=== PATIENT | male | born 1935 | race Caucasian/White ===

== ENCOUNTER 2022-09-11 08:20 | Observation (INO) ==
--- NOTE | 2022-08-05 09:58 | PAT Medication Instructions ---
Medication Instructions Date of Service August 05, 2022 Home Medications Medication Instructions Recorded atorvastatin 10 mg tablet See Rx Instructions .Route 06/05/22 .COMPLEX #90 tabs atorvastatin 10 mg tablet See Rx Instructions .Route .COMPLEX cyanocobalamin (vitamin B-12) 100 mcg tablet 100 mcg PO QAM garlic 1,000 mg PO DAILY multivitamin 0.5 tab PO BID omega-3 fatty acids 1,000 mg PO BID pyridoxine (vitamin B6) 100 mg tablet (Vitamin B-6) 100 mg PO DAILY turmeric 400 mg capsule 400 mg PO DAILY vitamins A,C,W-seya-otyccb 2,148 mcg-113 mg-45 mg-17.4 mg tablet (PreserVision AREDS) 1 tab PO BID STOP taking 2 weeks before surgery (or as soon as possible if surgery is within 2 weeks) garlic 1,000 mg PO DAILY omega-3 fatty acids 1,000 mg PO BID turmeric 400 mg capsule 400 mg PO DAILY vitamins A,C,K-xpek-scazph 2,148 mcg-113 mg-45 mg-17.4 mg tablet (PreserVision AREDS) 1 tab PO BID DO NOT take the morning of surgery cyanocobalamin (vitamin B-12) 100 mcg tablet 100 mcg PO QAM multivitamin 0.5 tab PO BID pyridoxine (vitamin B6) 100 mg tablet (Vitamin B-6) 100 mg PO DAILY Take evening before surgery atorvastatin 10 mg tablet See Rx Instructions .Route .COMPLEX multivitamin 0.5 tab PO BID Other Notes If you have any questions please call us at [phone] or [phone] or [phone] or [phone]
--- NOTE | 2022-08-12 11:27 | Anesthesiology Consultation ---
Date of Service August 12, 2022 Assessment & Plan (1) Encounter for pre-operative examination: - awaiting upcoming PCP appointment. - Outpatient joint assessment: Patient is currently scheduled for inpatient pathway. If re-evaluated pending system levels during current pandemic/surgeon requests outpatient pathway, patient is not acceptable candidate for outpatient joint program from anesthesia standpoint. Chart Review Chart Review: Pending: Refer to Additional Notes / Consult section and Patient seen in Pre Admission Testing Teaching & Discussion Pre-Anesthesia Teaching/Discussion Notes: Instructed NPO after midnight before surgery, except medications with 15 cc of water. Medication instructions provided according to the PAT guidelines. History Surgery Operation Date: 09/11/22 08:10 Proposed Procedures p Right Total Knee Arthroplasty - Estuardo Linder, Height/Weight Height: 5 ft 5 in Weight: 79.379 kg Allergies Allergy/AdvReac Type Severity Reaction Status Date / Time No Known Allergies Allergy Unknown Unverified 07/28/22 13:14 Medications Home Medications Medication Instructions Recorded Confirmed Last Taken atorvastatin 10 mg tablet See Rx Instructions .Route 06/05/22 Unknown .COMPLEX #90 tabs cyanocobalamin (vitamin B-12) 100 100 mcg PO QAM 07/28/22 07/28/22 Unknown mcg tablet garlic 1,000 mg PO DAILY 07/28/22 07/28/22 Unknown multivitamin 0.5 tab PO BID 07/28/22 07/28/22 Unknown omega-3 fatty acids 1,000 mg PO BID 07/28/22 07/28/22 Unknown pyridoxine (vitamin B6) 100 mg 100 mg PO DAILY 07/28/22 07/28/22 Unknown tablet (Vitamin B-6) turmeric 400 mg capsule 400 mg PO DAILY 07/28/22 07/28/22 Unknown vitamins A,C,G-rozr-hvasfp 2,148 1 tab PO BID 07/28/22 07/28/22 Unknown mcg-113 mg-45 mg-17.4 mg tablet (PreserVision AREDS) Past Medical History Medical History (Updated 08/12/22 @ 11:23 by Annette Smith PA-C) Benign neoplasm of tongue History of COVID-19 04/2021>RESOLVED History of skin cancer L shoulder Hypercholesterolemia Macular degeneration Urinary urgency Patient denies h/o stroke, seizures, heart attack, heart failure, DM, HTN, blood clots or blood transfusions. Exercise / Class Metabolic Activity II 4-5 Yardwork/Stairs/Walk up hill (denies chest discomfort or shortness of breath with 1 FOS) Past Family History Family History Father Diabetes Myocardial infarction Mother Myocardial infarction Sister Diabetes Other No family history of adverse response to anesthesia Denies family history of Ovarian cancer Prostate cancer Breast cancer Colorectal cancer Past Surgical History Surgical History H/O colonoscopy with polypectomy History of cataract surgery RT/LEFT History of tonsillectomy and adenoidectomy Hx of lymph node excision Hx of melanoma excision LEFT UPPER ARM Hx of wisdom tooth extraction Past Anesthesia History No Hx of Anesthesia Complications and No Family Hx of Anesthesia Complications History of PONV No Hx of PONV and No Hx of Motion Sickness Social History Smoking Status: Never smoker Do You Dip or Chew Tobacco: No Hx Alcohol Use: No Hx Substance Use: No substance use type: does not use Review of Systems Patient denies chest pain, shortness of breath, dyspnea on exertion, snoring, witnessed apneas, reflux, fever, chills, cough, wheezing, or palpitations. Physical Exam Vital Signs Vitals BP 149/78 P 66 TEMP 98.3 SP02 94% on RA RESP 17 Physical Full cervical extension range of motion without pain TMD 3.5 finger breadths Mallampati Score 3 Dentition: chipped right upper back tooth and several crowns; denies loose teeth, implants or bridges Lungs: normal respiratory effort. Clear throughout to auscultation, no adventitious breath sounds Cardiac: regular rate and rhythm, no murmurs noted Carotid arteries: negative bruit bilat Lab Results Anesthesia Preop Results Results Anesthesia Widget: WBC 6.02 K/ul (4.8-10.8) 08/12/22 Hgb 13.4 g/dl (14.0-18.0) L 08/12/22 Hct 38.9 % (42.0-52.0) L 08/12/22 Plt 242 K/uL (130-400) 08/12/22 Na 138 mmol/L (136-145) 08/12/22 K 4.4 mmol/L (3.5-5.1) 08/12/22 Cl 105 mmol/L (98-107) 08/12/22 CO2 26 mmol/L (21-32) 08/12/22 BUN 21 mg/dl (6-23) 08/12/22 Creat 0.84 mg/dl (0.6-1.4) 08/12/22 Glucose Level 87 mg/dl (70-99(Fasting)) 08/12/22 PT 11.4 Seconds (9.0-12.0) 08/12/22 PTT 27.5 Seconds (21.0-31.0) 08/12/22 INR 1.1 (0.9-1.1) 08/12/22 Blood Type O Positive 08/12/22 Antibody Screen NEGATIVE 08/12/22 Testing Electrocardiogram Date: 08/12/22 NSR, rate 65 bpm Left axis deviation RBBB Chest X-Ray Date: 08/12/22 No lines and tubes are seen. Calcified aortic knob is seen. The lungs are clear. No evidence of pleural effusion or pneumothorax. IMPRESSION: No acute chest disease. COVID-19 Risk Screen Screening Information COVID-19 Screen Date: 08/12/22 Exposure 21 Days Family/Household +COVID Last 21 Days: No Exposure 10 Days Any COVID Exposure Last 10 Days: No Symptoms Last 10 Days Experienced COVID Sx Last 10 Days: No + COVID 0-90 Days COVID + in Last 0-90 Days: No
--- NOTE | 2022-09-10 07:43 | History & Physical Report ---
Date of Service September 10, 2022 Assessment & Plan (1) Right knee DJD: We will proceed with a right total knee arthroplasty. Postoperatively he will be started on aspirin for DVT prophylaxis and kept overnight in the hospital for postoperative medical management. History of Present Illness Chief Complaint: Osteoarthritis of the right knee. Primary Care Provider: Warren Bradley III, THU Gray is a pleasant 86-year-old male who has been dealing with chronic worsening osteoarthritis of the right knee. He has failed conservative treatment including injections, anti-inflammatories, and activity modification. After failing extensive conservative treatment, he has elected proceed with a right total knee arthroplasty. Allergies Allergy/AdvReac Type Severity Reaction Status Date / Time No Known Allergies Allergy Unknown Unverified 09/07/22 08:03 Home Medications Medication Instructions Recorded Confirmed Type cyanocobalamin (vitamin B-12) 100 100 mcg PO QAM 07/28/22 09/07/22 History mcg tablet garlic 1,000 mg PO DAILY 07/28/22 09/07/22 History multivitamin 0.5 tab PO BID 07/28/22 09/07/22 History omega-3 fatty acids 1,000 mg PO BID 07/28/22 09/07/22 History pyridoxine (vitamin B6) 100 mg 100 mg PO DAILY 07/28/22 09/07/22 History tablet (Vitamin B-6) turmeric 400 mg capsule 400 mg PO DAILY 07/28/22 09/07/22 History vitamins A,C,C-mbib-rhnwfs 2,148 1 tab PO BID 07/28/22 09/07/22 History mcg-113 mg-45 mg-17.4 mg tablet (PreserVision AREDS) atorvastatin 10 mg tablet See Rx Instructions .Route 09/07/22 09/07/22 Rx .COMPLEX #90 tabs Past Med/Surg History Medical History Benign neoplasm of tongue History of COVID-19 04/2021>RESOLVED History of skin cancer L shoulder Hypercholesterolemia Macular degeneration Urinary urgency Surgical History H/O colonoscopy with polypectomy History of cataract surgery RT/LEFT History of tonsillectomy and adenoidectomy Hx of lymph node excision Hx of melanoma excision LEFT UPPER ARM Hx of wisdom tooth extraction Family History Father Diabetes Myocardial infarction Mother Myocardial infarction Sister Diabetes Other No family history of adverse response to anesthesia Denies family history of Ovarian cancer Prostate cancer Breast cancer Colorectal cancer Social History Smoking Status: Never smoker Second Hand Exposure: Yes ( A CHILD); Do You Dip or Chew Tobacco: No; Hx Alcohol Use: No Hx Substance Use: No Preferred Language: Brazilian Communication Ability: Effective Visual Impairment: No Limitations Hearing Ability: Normal Sales Representative Adding Machines Required: No Beliefs That Will Affect Care: None marital status: Current Living Situation: Spouse current occupational status: retired 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 Physical Exam On physical examination the right knee, he has range of motion of 0 to 130 degrees. There is a slight varus deformity. He has pain mostly over the distal medial femoral condyle and over the medial joint line.. Constitutional WD/WN, vitals as above Eyes PERRL, conjunctivae normal, anicteric sclerae ENMT external ear and nose normal, oropharynx normal Neck trachea midline, no thyromegaly Respiratory normal respiratory effort, lungs clear to auscultation Cardiovascular RRR, no murmur, no edema Gastrointestinal (Abdomen) normal bowel sounds, soft, nontender, no hepatosplenomegaly Skin no rashes, warm and dry Psychiatric A+Ox3, euthymic affect Results & Data Results & Data Laboratory Results . Diagnostic Findings X-rays of the right knee show advanced osteoarthritis with joint space narrowing, osteophyte formation, and lyrt-al-uxkb articulation. PG Care Time/CCT Total # of Minutes Spent Total Time Spent with Patient: Total time spent is greater than 50% in coordination of care (as documented) at patient's floor/unit and/or counseling patient: Coding Level of Care Code None Diagnoses Right knee DJD M17.11 Osteoarthritis type: primary (1) Right knee DJD Osteoarthritis type: primary Qualified Code(s): M17.11 - Unilateral primary osteoarthritis, right knee
[~2022-09-11 08:20] MED LIST: ACETAMINOPHEN 500 MG TAB PO SCH; FAMOTIDINE 20 MG TAB PO SCH; GABAPENTIN 300 MG CAP PO SCH; LR 500ML BOLUS, THEN 15ML/HR IV SCH; ORTHO JOINT MIX INFIL SCH; ROPIVACAINE 0.5% 5 MG/ML 30 ML VIAL ONE; TRANEXAMIC ACID 1,000 MG **IV Intra-op IV SCH; TRANEXAMIC ACID 1,000 MG **IV Pre-op IV SCH; ceFAZolin 2000MG 2,000 MG/15 ML SYR IV SCH; dexAMETHasone 4 MG TAB PO SCH
[2022-09-11] MEDS: LR 60ML/HR IV SCH ×2 (09:05→11:37)
[2022-09-11] MEDS ORDERED: MIDAZOLAM HCL 1 MG/ML 2ML VIAL ONE (10:00)
--- NOTE | 2022-09-11 10:14 | History & Physical Bridge Note ---
Date of Service September 11, 2022 History & Physical Bridge Note I have examined the patient, reviewed the History & Physical and in the interval since the performance of the History & Physical I have noted the following changes of clinical significance: no changes noted
[2022-09-11] MEDS ORDERED: ORTHO JOINT ANESTHETIC ONE (10:45)
[2022-09-11] MEDS ORDERED: KETOROLAC 30 MG/ML VIAL IV PRN (11:04)
[2022-09-11] MEDS ORDERED: ATROPINE SULFATE 0.1 MG/ML 10ML SYR IV PRN (11:04)
[2022-09-11] MEDS ORDERED: ePHEDrine sulfate 50 MG/ML AMP IV PRN (11:04)
[2022-09-11] MEDS ORDERED: HYDROmorphone INJ 1 MG/ML SYRINGE IV PRN (11:04)
[2022-09-11] MEDS ORDERED: ONDANSETRON INJ 2 MG/ML 2 ML VIAL IV PRN ×2 (11:04→14:37)
[2022-09-11] MEDS ORDERED: PROPOFOL IV EMULSION 10 MG/ML 20 ML VIAL IV ONE (11:40)
[2022-09-11] MEDS ORDERED: ONDANSETRON INJ 2 MG/ML 2 ML VIAL ONE (11:40)
[2022-09-11] MEDS ORDERED: LIDOCAINE 2% 2 ML VIAL/AMP(20MG/ML) INFIL ONE (11:40)
--- NOTE | 2022-09-11 12:46 | Operative Report ---
PG Post Operative Report Pre & Post Diagnosis Operation Date: 09/11/22 11:00 Pre-Op Diagnosis: Right Knee Degenerative Joint Disease Post-Op Diagnosis: Right Knee Degenerative Joint Disease I identified the patient and participated in the time-out.: Yes Procedure Operation Date: 09/11/22 11:00 Actual Procedures p Right Total Knee Arthroplasty(Right) - Estuardo Linder DO Surgeon Estuardo Linder DO [employer] Estuardo Jacques PA-C Estimated Blood Loss 30 Findings Consistent with Post-Op Diagnosis Specimens Right femoral and tibial bone Description of Procedure Implants used: I used a [employer]yapa Persona total knee arthroplasty system with a size 6 standard femur, D tibia, 34 oval patella, and a size 16 medial congruent polyethylene bearing. All components were cemented in place with Biomet cement. Gray arrived [facility] for the above procedure. He was seen in the preoperative holding area and the operative extremity was identified and signed. He was given a preoperative antibiotic, TXA, a spinal anesthetic and an adductor nerve block. He was taken back to the operating room and laid on the table in supine position. He was given basic sedation. The operative knee was then prepped and draped in sterile fashion. A timeout was done, and the patient and the operative extremity was properly identified. A midline incision was made directly over the patella. Dissection was taken down to the extensor mechanism. A midvastus arthrotomy was used. The medial retinaculum was released and the fat pad was mostly excised. The knee was flexed and the ACL, PCL, and meniscus were removed. A drill was sent down the center of the femoral canal followed by an intramedullary nick. Off that nick a distal femoral cutting block was placed. 9 mm was resected off the distal femur at 5 of valgus. A posterior referencing AP sizing guide was then placed on the distal femur. The femur measured to be a size 6. 2 drill holes were placed in 3 of external rotation. A 4-in-1 cutting block was then impacted into place. Anterior, posterior, and chamfer cuts were then made. The proximal tibia was then exposed. An external tibial alignment guide was placed. A tibial cut guide was then anchored in place and the proximal tibia was then resected. The posterior aspect of the knee was then o pened up and any additional meniscus fragments and osteophytes were removed. The tibia measured to be a size D. The tibial plate was then placed in the appropriate rotation and the tibia was drilled and punched. Trial components were then placed. I used a size 16 medial congruent polyethylene insert. The knee was brought through a full range of motion and felt to be stable. The peg holes for the femoral component were then drilled. The patella was then everted and 9 mm was resected off the posterior aspect of the patella. The patella measured to be a size 34 oval. 3 peg holes were then drilled. A trial patella was placed. The knee was once again brought through a full range of motion and felt to be stable. Trial components were then removed. The surrounding soft tissues were injected with 100 cc of an orthopedic pain control cocktail. All components were then cemented into place with Biomet cement. The final polyethylene insert was then snapped into place. Once cement was dry the tourniquet was deflated. Hemostasis was obtained. A dilute betadyne lavage was then done for 3 minutes. The joint was then irrigated with normal saline solution. The midvastus arthrot carol was then closed with #1 Vicryl suture. The skin was closed with 2-0 Vicryl, 3-0V lock suture, and froylan. A soft compressive dressing was placed. He was then transferred to a hospital bed and taken to the postanesthesia care unit in stable condition. He tolerated the procedure well. Estuardo Jacques PA-C, was present for the entire procedure. He was critical for patient positioning, prepping, draping, retraction exposure, wound closure and application of sterile dressing. I attest to the content of the Intraoperative Record and any orders documented therein. Any exceptions are noted below.
--- NOTE | 2022-09-11 13:38 | XRay Report ---
XR knee RT 1 or 2V routine HISTORY: 86 years-old Male Surgical Post Op right knee total joint arthroplasty COMPARISON: Radiographs 08/12/2022 TECHNIQUE: 2 views of the right knee FINDINGS: Total joint arthroplasty with patellar resurfacing. Anterior midline skin froylan are noted along wit h expected postoperative soft tissue swelling with deep tissue air. No acute fracture, malalignment o r expected opaque foreign body. IMPRESSION: Total joint arthroplasty with expected postoperative changes.. ACT 112: Negative or not required by law. The above report was generated using voice recognition software. It may contain grammatical, syntax o r spelling errors. Electronically signed by: Akira Denson M.D. 09/11/2022 1:37 PM
[2022-09-11] MEDS ORDERED: NALOXONE HCL 0.4 MG/1 ML VIAL/CARP IV PRN (14:37)
[2022-09-11] MEDS ORDERED: bisacodyL 10 MG SUPP PR PRN (14:37)
[2022-09-11] MEDS ORDERED: oxyCODONE HCL IR 5 MG TAB (IMMEDIATE RELEASE) PO PRN (14:37)
[2022-09-11] MEDS ORDERED: MAGNESIUM HYDROXIDE SUSP 30 ML UDC PO PRN (14:37)
[2022-09-11] MEDS ORDERED: METOCLOPRAMIDE HCL INJ 5 MG/ML 2 ML VIAL IV PRN (14:37)
[2022-09-11] MEDS ORDERED: HYDROmorphone INJ 0.5 MG/0.5 ML SYR IV PRN (14:37)
[2022-09-11] MEDS: ACETAMINOPHEN 500 MG TAB PO SCH ×2 (15:12→21:07)
[2022-09-11] MEDS: SODIUM CHLORIDE 0.9% 1000ML 1,000 ML IV SCH (15:12)
--- NOTE | 2022-09-11 15:14 | Anesthesiology Progress Note ---
Date of Service September 11, 2022 Anesthesia Post Procedure Vital Signs Vital Signs: Temp Pulse Pulse Resp BP Pulse Ox O2 Del Method 09/11/22 14:47 61 18 152/85 H 95 Nasal Cannula 09/11/22 14:15 36.4 C L 60 16 114/66 93 Nasal Cannula 09/11/22 13:30 61 16 109/60 95 Oxymask 09/11/22 13:50 36.5 C 58 L 14 108/62 95 Nasal Cannula 09/11/22 13:40 60 17 112/67 94 Oxymask 09/11/22 13:20 64 17 111/62 94 Oxymask 09/11/22 13:10 36.1 C L 70 16 98/63 L 92 Oxymask 09/11/22 09:10 36.6 C 61 18 176/87 H 94 Room Air O2 Flow Rate 09/11/22 14:47 2 09/11/22 14:15 2 09/11/22 13:30 9 09/11/22 13:50 2 09/11/22 13:40 5 09/11/22 13:20 9 09/11/22 13:10 5 09/11/22 09:10 Transfer of Care Handoff Completed per policy Notes Mental Status: alert / awake / arousable Patient Amnestic to Procedure: Yes Nausea / Vomiting: adequately controlled Pain: adequately controlled Airway Patency, RR, SpO2: stable & adequate BP & HR: stable & adequate Hydration State: stable & adequate Anesthetic Complications: no major complications apparent
[2022-09-11] MEDS: ceFAZolin 2000MG 2,000 MG/15 ML SYR IV SCH (18:21)
[2022-09-11] MEDS ORDERED: ATORVASTATIN 10 MG TAB PO SCH (21:00)
[2022-09-11] MEDS ORDERED: SENNA 8.6 MG TAB PO SCH (21:00)
[2022-09-11] MEDS: ASPIRIN 81 MG ECTAB PO SCH (21:06)
[2022-09-11] MEDS: DOCUSATE SODIUM 100 MG CAP PO SCH (21:07)
[2022-09-12] MEDS: SODIUM CHLORIDE 0.9% 1000ML 1,000 ML IV SCH ×2 (01:27→07:52)
[2022-09-12] MEDS: ceFAZolin 2000MG 2,000 MG/15 ML SYR IV SCH (03:52)
[2022-09-12] MEDS: ACETAMINOPHEN 500 MG TAB PO SCH (05:40)
--- NOTE | 2022-09-12 06:13 | Orthopedic Progress Note ---
Date of Service September 12, 2022 Assessment & Plan (1) Status post right knee replacement: Overall he is doing well. Is not having much pain in the right knee. He will be seen by physical therapy today for ambulation and range of motion exercises. He is on aspirin for DVT prophylaxis. He can be discharged home later today. He will follow-up with orthopedics in 2 weeks. Shyam Castellano was seen and examined at bedside this morning. Overall is doing very well. Is not having much pain in the right knee. He has been up and ambulating to the chair. He has no complaints.. Review of Systems All systems reviewed & are unremarkable except as noted in HPI & below. Physical Exam On physical examination of the right knee, the dressing is clean and dry. His leg is out in full extension. He has active dorsiflexion plantarflexion of the right ankle.. Results & Data Results & Data Laboratory Results . Diagnostic Findings Postoperative x-rays of the right knee show the prosthesis to be in good alig nment without any evidence of fracture, screws, or loosening. PG Care Time/CCT Total # of Minutes Spent Total Time Spent with Patient: Total time spent is greater than 50% in coordination of care (as documented) at patient's floor/unit and/or counseling patient: Coding Level of Care Code 05691 Post Operative Follow-Up Diagnoses Status post right knee replacement Z96.651
--- NOTE | 2022-09-12 06:14 | Discharge Summary ---
Date of Service September 12, 2022 Admission HPI (Per Admitting) Gray is a pleasant 86-year-old male who has been dealing with chronic worsening osteoarthritis of the right knee. He has failed conservative treatment including injections, anti-inflammatories, and activity modification. After failing extensive conservative treatment, he has elected proceed with a right total knee arthroplasty. Admission Exam (Per Admitting) On physical examination the right knee, he has range of motion of 0 to 130 degrees. There is a slight varus deformity. He has pain mostly over the distal medial femoral condyle and over the medial joint line.. Principal Diagnosis Same as "Discharge Diagnosis" noted below under Discharge Instructions. Discharge Exam On physical examination of the right knee, the dressing is clean and dry. His leg is out in full extension. He has active dorsiflexion plantarflexion of the right ankle.. Discharge Data Procedures Performed Operation Date: 09/11/22 11:00 Actual Procedures p Right Total Knee Arthroplasty(Right) - Estuardo Linder DO Ordered Studies 09/11/22 05:00 US - OR guided needle placemen Routine Hospital Course (1) Status post right knee replacement: On September 11, 2022 Gray arrived at [facility] and underwent a right knee replaced without complication. He had a spinal anesthetic. Postoperatively he was started on aspirin for DVT prophylaxis and transferred to the general orthopedic floors. His hospital course was uneventful. On postop day #1, his vital signs were stable and his pain was well controlled. He was able to participate well with physical therapy doing ambulation and range of motion exercises. He was then discharged home. He will follow-up with o rthopedics in 2 weeks. PG Care Time/CCT Total # of Minutes Spent Total Time Spent with Patient: Total time spent is greater than 50% in coordination of care (as documented) at patient's floor/unit and/or counseling patient: Discharge Plan Discharge Items Patient Disposition: Home - Home Health Services Reason For Visit: Right Knee Degenerative Joint Disease Discharge Diagnosis: Right knee replacement Activity: Per Instructions section Non-emergency contact: Surgeon Call non-emergency contact if: your wound has increased redness and your wound has increased drainage Follow-up/Referrals: Warren Bradley III, CRNP [Primary Care Provider] - Diet: Regular Addtl Attending Provider Instructions: Activity and Therapy Recommendations: * If you are using [facility] then therapy will be provided at your home until they feel you have accomplished all of your goals. * If you are using [facility] then Physical Therapy will be provided until they feel you are ready to start Outpatient Physical Therapy. * If you are not using home therapy then Outpatient Physical Therapy should start about 3-5 days from your day of surgery. Therapy will last about 6-10 weeks * It is important not to put a pillow under your knee when you are relaxing or sleeping. It is just as important to make sure you are getting your knee perfectly straight as it is to regain your knee bend. * You were shown a series of exercises in the hospital. Do these exercises three times each day including the exercises you were shown in physical therapy. * Get up and walk several times each day. For the first four weeks, try not to stand or walk for more than one hour at a time. If you do stand or walk for more than one hour, you will not hurt anything, but your leg will likely swell. * As you feel comfortable, you may change from the walker or crutches to a cane and then to independent walking. Medications: * Narcotic You will likely be sent home from the hospital with a prescription for the narcotic pain medication that worked best throughout your stay. * Aspirin Most patients will be required to take Aspirin 81mg twice a day for 6 weeks after surgery. This is obtained [id number] and a prescription is not necessary. * Other medications may be prescribed for specific circumstances. If you have any questions, please call the office at . * Resume previous home medications unless otherwise instructed TEDs/Elastic Stockings: The white elastic stockings help limit swelling and prevent blood clots from forming in your legs.~ The more you wear them, the more they work. Wear them for six weeks. Dressing Care: The dressing can be changed after physical therapy on postop day #1. Daily dry dressing changes for a few days, especially if the incision is still draining some. If the incision is not draining then you may leave the froylan open to air. If there is a little bit of drainage or if the froylan are getting stuck on your clothing then cover the incision with a dry dressing. The froylan will be removed at your 2 week follow-up appointment. Showering: You may shower 5 days from the day of surgery as long as the incision is no longer draining. You may shower with the froylan exposed. Let soapy water run over the froylan and pat them dry. Do not scrub or soak the incision. Things To Watch For: * Drainage from the incision site that occurs more than one week after your surgery. * Increased redness at the incision site. * Fever above 102 degrees Fahrenheit. * Unusual chest pain or shortness of breath. * Call [facility] at with any of the above problems Follow-Up Visit: Follow-up with Dr. Linder's PA (Estuardo Jacques) 2-3 weeks after your day of surgery. He will remove your froylan and answer any questions. If you have any additional questions or concerns, Dr Linder is usually in the office at the same time and will be available An appointment was probably scheduled when you signed-up for surgery in the office. If you have any questions call Office Instructions: More detailed instructions as well as Frequently Asked Questions were provided in a folder by our office when you signed-up for surgery. Please review these instructions when you get home. If you have any further questions or concerns, please feel free to call the office at [phone] Pending Studies at Discharge: No Stand-Alone Forms: My [facility] Medications and DC Order Prescriptions: New aspirin 81 mg Tablet,Delayed Release (Dr/Ec) 81 mg PO BID 42 Days Qty: 84 0RF oxycodone-acetaminophen 5-325 mg tablet 1 tab PO Q6H PRN (Reason: pain) Qty: 30 0RF Continued multivitamin Tablet 0.5 tab PO BID cyanocobalamin (vitamin B-12) 100 mcg Tablet 100 mcg PO QAM garlic Capsule 1,000 mg PO DAILY pyridoxine (vitamin B6) [Vitamin B-6] 100 mg Tablet 100 mg PO DAILY Fish Oil Capsule 1,000 mg PO BID PreserVision AREDS 2,148 mcg-113 mg-45 mg-17.4mg Tablet 1 tab PO BID Rx Instructions: administer with AM and PM meals turmeric 400 mg Capsule 400 mg PO DAILY atorvastatin [Lipitor] 10 mg tablet See Rx Instructions .ROUTE .COMPLEX Rx Instructions: Take 1 tablet by mouth in the evening Admission Data Admit Date/Time: 09/11/22 13:10 Attending Provider: Estuardo Linder Admit Provider: Estuardo Linder Primary Care Provider: Warren Bradley III
[2022-09-12] MEDS: DOCUSATE SODIUM 100 MG CAP PO SCH (07:50)
[2022-09-12] MEDS: ASPIRIN 81 MG ECTAB PO SCH (07:52)
[2022-09-12] MEDS ORDERED: dexAMETHasone 4 MG TAB PO SCH (08:00)
[2022-09-12] MEDS ORDERED: MULTIVITAMIN TAB PO SCH (09:00)
== END 2022-09-12 12:16 | disposition home health service (06) ==
LOC: 3E 08:20 → ASU 08:20